=== PATIENT | male | born 1940 | race Caucasian/White ===

== ENCOUNTER 2017-09-10 05:40 | Day surgery (SDC) | payer OTHER ==
[~2017-09-10 05:40] MED LIST: COZAAR100 MG PO; GABAPENTIN400 MG PO; METFORMIN HCL500 MG PO; NEURIN SL; NORVASC10 MG PO; SIMVASTATIN20 MG PO; TAMS0.4C PO
[2017-09-10] MEDS ORDERED: ULTRACET PO (10:29)
[2017-09-10] MEDS ORDERED: ZOFRAN ODT4 MG PO (10:29)
[2017-09-10] MEDS ORDERED: MIRALAX17 GM PO (10:29)
== END 2017-09-10 15:10 | disposition home or self-care (01) ==
LOC: CIR.AMB 05:40
DX: K40.91 Unilateral inguinal hernia, without obstruction or gangrene, recurrent (principal)